=== PATIENT | male | born 1935 | race Caucasian/White ===

== ENCOUNTER 2019-10-20 12:46 | Emergency (ER) | payer MEDICARE, OTHER, SELFPAY ==
--- NOTE | ~2019-10-20 | XR_ITS ---
EXAMINATION: XR chest 1V portable INDICATION: Weakness and fever TECHNIQUE: Portable AP chest at 1256 hours COMPARISON: 06/18/2005 FINDINGS: The lungs are free of acute opacities. There is no pleural effusion or pneumothorax. The ca rdiomediastinal silhouette is normal. There is widening of the left acromioclavicular joint which may be posttraumatic versus surgical resection. IMPRESSION: 1. No acute cardiopulmonary abnormality. Reviewed, dictated and finalized at location A.
--- NOTE | ~2019-10-20 | CT_ITS ---
EXAMINATION: CT brain wo con INDICATION: Head injury COMPARISON: None TECHNIQUE: Standard unenhanced head CT. The dose-length product (DLP) was 681.00 mGy-cm. The mA was a djusted according to patient size. Iterative reconstruction technique was employed. FINDINGS: There is no acute intraparenchymal hemorrhage. No evidence of mass lesion. No evidence of a cute infarction. 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 There is moderate periventricular and subcortical hypodensity probably related to small vessel ischemic disease. There is moderate prominence of the sulci and ventricles related to cerebral atroph y. Intracranial calcified cerebral atherosclerosis is noted. There is no mass effect or midline shift . Changes in the globes are likely from ocular lens surgery. The visualized sinuses and mastoid air cells are well aerated. IMPRESSION: 1. No acute intracranial abnormality. 2. Age related findings. Reviewed, dictated and finalized at location A.
--- NOTE | 2019-10-20 12:51 | ECG_ITS ---
Measurements Intervals [place] Rate: 50 P: 20 ME: 185 QRS: -5 QRSD: 125 T: 13 QT: 438 QTc: 401 Interpretive Statements SINUS BRADYCARDIA INCOMPLETE RIGHT BUNDLE BRANCH BLOCK BORDERLINE ECG Electronically Signed On 10-20-2019 15:32:13 CDT by Malvin Leon D.O.
[2019-10-20 12:54] VITALS: BP 122/65; PULSE 55; RESP 20; TEMP 36.7; O2SAT 99
[2019-10-20 13:39] LABS: Basophils Percent Auto 0.5 % (0.2-1.2); Eosinophils Absolute Auto 0.1 K/mm3 (0-0.3); Eosinophils Percent Auto 0.9 % (0-4.4); Hematocrit 37.4 % (42.0-52.0); Hemoglobin 12.3 g/dL (14.0-18.0); Immature Granulocyte Absolute 0.02 K/mm3 (0.00-0.031); Immature Granulocyte Percent A 0.3 % (0-0.5); Lymphocytes Percent Auto 26.3 % (18.3-44.2); Mean Corpuscular HGB Conc 32.9 g/dl (32-36); Mean Corpuscular Hemoglobin 31.5 pg (26-34); Mean Corpuscular Volume 95.7 fl (80-100); Monocytes Absolute Auto 0.5 K/mm3 (0.1-0.6); Monocytes Percent Auto 7.4 % (2.6-8.5); Neutrophils Absolute Auto 4.2 K/mm3 (1.3-6.7); Neutrophils Percent Auto 64.6 % (45.5-73.1); Platelet Count Result 162 k/mm3 (150-375); Red Blood Count 3.91 M/mm3 (4.6-6.20); Red Cell Distribution Width 12.9 % (11.5-14.5); White Blood Count 6.5 K/mm3 (4.5-10.0)
[2019-10-20 13:44] LABS: Add Urine Microscopic? YES; Amorphous Sediment Urine Few; Appearance Urine Cloudy (Clear); Bilirubin Urine Negative (Negative); Blood Urine 1+ (Negative); Color Urine Yellow (Yellow); Glucose Urine UA Negative (Negative); Ketones Urine Negative (Negative); Leukocyte Esterase Ur Negative LEU/UL (Negative); Mucus Urine Rare /lpf; Nitrate Urine Negative (Negative); Protein Urine Negative (Negative); RBC Urine 21-50 /hpf (0-2); Specific Grav Ur 1.017 (1.001-1.035); Squamous Epithelial Cell Urine Occasional /hpf (Few)
[2019-10-20 13:49] LABS: INR 1.1; Prothrombin Time 13.8 Seconds (11.1-14.7)
[2019-10-20 13:51] LABS: Alanine Aminotransferase 16 U/L (4-50); Albumin Level 3.7 g/dL (3.5-5.1); Alkaline Phosphatase 70 U/L (38-126); Anion Gap 4 mmol/L (8-16); Aspartate Amino Transferase 22 U/L (17-59); Bilirubin,Total 0.6 mg/dL (0.2-1.3); Blood Urea Nitrogen 18 mg/dL (9-20); Calcium 8.6 mg/dL (8.4-10.2); Carbon Dioxide 30 mmol/L (22-30); Chloride 104 mmol/L (98-107); Estimated CRCL calculation 60 ml/min; Estimated Glomerular Filt Rate > 60; Glucose 94 mg/dL (75-110); Potassium 4.2 mmol/L (3.4-5.0); Sodium 138 mmol/L (137-145)
--- NOTE | 2019-10-20 14:00 | ED.WEAKNESS ---
HPI - Weakness General Chief complaint: Weakness Stated complaint: WEAKNESS Source: EMS Mode of arrival: EMS Limitations: dementia History of Present Illness HPI Narrative: 84-year-old with a history of dementia was sent from a alf with complaints of weakness, frequent falls. As per the alf record patient has no history of fever or chills. Patient presently denies any complaints. MD Complaint: generalized weakness Onset (ago): unknown Duration: constant Location: generalized Migration: none Exacerbating factors: none Related Data Home Medications Medication Instructions Recorded Confirmed Milk of Magnesia 30 ml PO DAILY PRN 10/20/19 acetaminophen [Tylenol] 650 mg PO Q4-6H PRN 10/20/19 aspirin 325 mg PO DAILY 10/20/19 docusate sodium [Colace] 100 mg PO DAILY 10/20/19 donepezil [Aricept] 10 mg PO DAILY 10/20/19 lisinopril 10 mg PO DAILY 10/20/19 lorazepam [Ativan] 0.5 mg PO Q4-6H PRN 10/20/19 melatonin 5 mg PO DAILY 10/20/19 mirtazapine [Remeron] 15 mg PO DAILY 10/20/19 omega-3 fatty acids-fish oil [Fish 1 cap PO DAILY 10/20/19 Oil Pearls] polyethylene glycol 3350 [Miralax] 17 g PO DAILY PRN 10/20/19 Allergies Allergy/AdvReac Type Severity Reaction Status Date / Time iodixanol Allergy Unknown HIVES, Verified 10/15/14 08:29 ITCHINESS, ERYTHEMA Review of Systems Review of Systems: ROS unobtainable: Yes unobtainable due to medical condition (Dementia) Exam Narrative: Exam Narrative: GENERAL: Well-appearing, well-nourished, and in no acute distress. HEAD: Normocephalic, atraumatic. EYES: PERRLA and EOMI. ENT: Nares clear, no rhinorrhea . Mucous membranes moist. NECK: Supple. CHEST: Clear to auscultation. No respiratory distress. HEART: Regular rate and rhythm. No murmur heard. Normal peripheral pulses. ABDOMEN: Soft, nontender, nondistended, normal active bowel sounds. EXTREMITIES: Normal range of motion. No edema. SKIN: Warm, dry, no rash. NEURO: No focal deficits. Alert and oriented X 1. PSYCH: Normal mood and affect. Course Vital Signs Vital signs: Vital Signs Temperature 36.7 C 10/20/19 12:54 Pulse Rate 55 L 10/20/19 12:54 Respiratory Rate 10/20/19 12:54 Blood Pressure 122/65 10/20/19 12:54 Pulse Oximetry 99 10/20/19 12:54 Temperature 36.7 C 10/20/19 12:54 Pulse Rate 55 L 10/20/19 12:54 Respiratory Rate 10/20/19 12:54 Blood Pressure 122/65 10/20/19 12:54 Pulse Oximetry 99 10/20/19 12:54 MDM - Weakness MDM Narrative Medical decision making narrative: With a given history of dementia and fall will do a CBC chemistry and a CT of the head to make sure she has no bleed. As per the EMS patient had recent urinary tract infection lower catheter urine to see if he had any bladder infection. After reviewing the labs and CT of the head all were unremarkable. We will send him back to the alf. Informed pt ' s family about his lab, Radiology findings. [facility] Lab Data Result diagrams: 10/20/19 13:29 10/20/19 13:29 Labs: Lab Results 10/20/19 10/20/19 10/20/19 Range/Units 13:29 13:29 13:29 WBC 6.5 (4.5-10.0) K/mm3 RBC 3.91 L (4.6-6.20) M/mm3 Hgb 12.3 L (14.0-18.0) g/dL Hct 37.4 L (42.0-52.0) % MCV 95.7 (80-100) fl MCH 31.5 (26-34) pg MCHC 32.9 (32-36) g/dl RDW 12.9 (11.5-14.5) % Plt Count 162 (150-375) k/mm3 MPV 10.0 (7.4-10.4) fl Immature Gran % (Auto) 0.3 (0-0.5) % Neut % (Auto) 64.6 (45.5-73.1) % Lymph % (Auto) 26.3 (18.3-44.2) % Sutter % (Auto) 7.4 (2.6-8.5) % Eos % (Auto) 0.9 (0-4.4) % Baso % (Auto) 0.5 (0.2-1.2) % Lymph # (Auto) 1.70 (0.9-3.2) K/mm3 Sutter # (Auto) 0.5 (0.1-0.6) K/mm3 Eos # (Auto) 0.1 (0-0.3) K/mm3 Baso # (Auto) 0.0 (0.0-0.1) K/mm3 Abs Immat Gran (auto) 0.02 (0.00-0.031) K/mm3 Absolute Neuts (auto) 4.2 (1.3-6.7) K/mm3 Abso
[2019-10-20 14:03] LABS: NT Pro B Type Natriuretic Pept 270 PG/ML (5-100); Troponin I < 0.012 ng/mL (0.000-0.034)
[2019-10-20 14:48] VITALS: BP 122/78; PULSE 56; RESP 18; O2SAT 99
== END 2019-10-20 14:50 ==
LOC: ANHED 14:43
PROVIDERS: Emergency Provider Family Medicine; PCP Internal Medicine
DX: R53.1 Weakness (principal); F03.90 Unspecified dementia, unspecified severity, without behavioral disturbance, psychotic disturbance, mood disturbance, and anxiety; I45.10 Unspecified right bundle-branch block; R00.0 Tachycardia, unspecified; Z79.82 Long term (current) use of aspirin
CPT/HCPCS: 36415; 70450; 71045; 80053; 81001; 83880; 84484; 85025; 85610; 87086; 93005; 99284